=== PATIENT | female | born 1950 | race Caucasian/White ===

== ENCOUNTER → 2023-11-03 06:42 | Day surgery (SDC) | payer MEDICARE, OTHER, SELFPAY | LOC: GI 06:42 | PROVIDERS: ATTENDING PHYSICIAN Internal Medicine Gastroenterology | DX: Z12.11 Encounter for screening for malignant neoplasm of colon (principal); K64.8 Other hemorrhoids; K57.30 Diverticulosis of large intestine without perforation or abscess without bleeding; Z98.0 Intestinal bypass and anastomosis status; D12.2 Benign neoplasm of ascending colon; D12.4 Benign neoplasm of descending colon | CPT/HCPCS: 45385; 88305 ==

== ENCOUNTER → 2024-04-05 15:28 | Outpatient (REF) | payer MEDICARE, OTHER, SELFPAY | LOC: HWRAD 15:28 | PROVIDERS: ATTENDING PHYSICIAN Family Medicine | DX: M54.12 Radiculopathy, cervical region (principal) | CPT/HCPCS: 72050 ==

== ENCOUNTER 2024-05-04 06:31 | Day surgery (SDC) | payer MEDICARE, OTHER, SELFPAY | END 2024-05-04 11:35 | disposition home or self-care (01) | LOC: GI 06:31 | PROVIDERS: ATTENDING PHYSICIAN Internal Medicine Gastroenterology | DX: R13.10 Dysphagia, unspecified (principal); R12 Heartburn; Q39.9 Congenital malformation of esophagus, unspecified; K22.89 Other specified disease of esophagus; K22.70 Barrett's esophagus without dysplasia | CPT/HCPCS: 43249; 43239; 88305 ==

== ENCOUNTER → 2024-07-17 18:05 | Outpatient (REF) | payer MEDICARE, OTHER, SELFPAY | LOC: RAD 18:05 | PROVIDERS: ATTENDING PHYSICIAN Family Medicine | DX: S79.911A Unspecified injury of right hip, initial encounter (principal) | CPT/HCPCS: 72190 ==

== ENCOUNTER → 2024-11-08 10:33 | Outpatient (REF) | payer MEDICARE, OTHER, SELFPAY ==
[2024-11-08 11:35] LABS: Urine Character Clear (Clear)
[2024-11-08 12:13] LABS: Urine Red Blood Cell 0-2 /HPF (0-2); Urine White Cell 0-2 /HPF (0-5)
[2024-11-10 04:05] LABS: ANA, IgG Reflex to HEp-2 None Detected (None Detected)
[2024-11-10 13:34] LABS: Serine Protease-3, IgG 1 AU/mL (0-19)
== END ==
LOC: REG 10:33
PROVIDERS: ATTENDING PHYSICIAN Internal Medicine Rheumatology; FAMILY PHYSICIAN Family Medicine
DX: D75.89 Other specified diseases of blood and blood-forming organs (principal); E88.09 Other disorders of plasma-protein metabolism, not elsewhere classified; I77.6 Arteritis, unspecified; K75.9 Inflammatory liver disease, unspecified; M05.9 Rheumatoid arthritis with rheumatoid factor, unspecified; M06.9 Rheumatoid arthritis, unspecified; M31.0 Hypersensitivity angiitis; M31.8 Other specified necrotizing vasculopathies; M35.9 Systemic involvement of connective tissue, unspecified; M65.849 Other synovitis and tenosynovitis, unspecified hand; R23.8 Other skin changes; R82.90 Unspecified abnormal findings in urine; Z51.81 Encounter for therapeutic drug level monitoring
CPT/HCPCS: 36415; 81003; 81015; 82595; 83516; 86038; 86160

== ENCOUNTER → 2024-11-12 10:45 | Outpatient (REF) | payer MEDICARE, OTHER, SELFPAY | LOC: REG 10:45 | PROVIDERS: ATTENDING PHYSICIAN Internal Medicine Rheumatology; FAMILY PHYSICIAN Family Medicine | DX: D75.89 Other specified diseases of blood and blood-forming organs (principal); E88.09 Other disorders of plasma-protein metabolism, not elsewhere classified; I77.6 Arteritis, unspecified; K75.9 Inflammatory liver disease, unspecified; M05.9 Rheumatoid arthritis with rheumatoid factor, unspecified; M06.9 Rheumatoid arthritis, unspecified; M31.0 Hypersensitivity angiitis; M31.8 Other specified necrotizing vasculopathies; M35.9 Systemic involvement of connective tissue, unspecified; M65.849 Other synovitis and tenosynovitis, unspecified hand; R23.8 Other skin changes; R82.90 Unspecified abnormal findings in urine; Z51.81 Encounter for therapeutic drug level monitoring | CPT/HCPCS: 36415; 82595 ==